=== PATIENT | male | born 2000 | race Caucasian/White ===

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

== ENCOUNTER 2019-10-29 15:45 | Emergency (ER) | payer MEDICAID ==
[2019-10-29 16:00] VITALS: BP 133/79
--- NOTE | 2019-10-29 16:35 | ER Document Report ---
ED GI/ - General Chief Complaint: Abdominal Pain Stated Complaint: FEVER/ABDOMINAL PAIN Time Seen by Provider: 10/29/19 16:20 Primary Care Provider: GOKUL MABRY MD [Primary Care Provider] - Follow up as needed Notes: CHIEF COMPLAINT: Fever and abdominal pain yesterday HPI: 19-year-old male patient states yesterday he had a slight tummy ache around the [facility] that lasted for a few hours then went away. States he had a fever of 100 yesterday. No vomiting or diarrhea denies nausea. States today presenting to the emergency department requesting a COVID test. He may have had a low-grade fever this morning but has absolutely no abdominal pain. Denies dysuria. Denies testicular pain. States his mother wanted to get him checked for COVID because he works at [employer] ROS: See HPI - all other systems were reviewed and are otherwise negative Constitutional: Subjective fever Eyes: no drainage, no blurred vision ENT: no runny nose, no sore throat Cardiovascular: no chest pain Resp: no SOB, no cough GI: no vomiting, no diarrhea, + abdominal pain : no dysuria Integumentary: no rash Allergy: no hives Musculoskeletal: no extremity pain or swelling Neurological: no numbness/tingling, no weakness MEDICATIONS: I agree with the patient medications as charted by the RN. ALLERGIES: I agree with the allergies as charted by the RN. PAST MEDICAL HISTORY/PAST SURGICAL HISTORY: Reviewed and agree as charted by RN. SOCIAL HISTORY: Reviewed and agree as charted by RN. FAMILY HISTORY: No significant familial comorbid conditions directly related to patient complaint EXAM: Reviewed vital signs as charted by RN. CONSTITUTIONAL: Alert and oriented and responds appropriately to questions. Well-appearing; well-nourished HEAD: Normocephalic; atraumatic EYES: PERRL; Conjunctivae clear, sclerae non-icteric ENT: normal nose; no rhinorrhea; moist mucous membranes; pharynx without lesions noted, no uvula edema or deviation, no tonsillar hypertrophy, phonation normal NECK: Supple without meningismus; non-tender; no cervical lymphadenopathy, no masses CARD: RRR; no murmurs, no clicks, no rubs, no gallops; symmetric distal pulses RESP: Normal chest excursion without splinting or tachypnea; breath sounds clear and equal bilaterally; no wheezes, no rhonchi, no rales, pulse oximetry 100% on room air not hypoxic ABD/GI: Normal bowel sounds; non-distended; soft, there is absolutely no abdominal pain on palpation of the abdomen specifically in the periumbilical and right lower quadrant region, no rebound, no guarding; no palpable organomegaly or masses. BACK: The back appears normal and is non-tender to palpation, there is no CVA tenderness EXT: Normal ROM in all joints; non-tender to palpation; no cyanosis, no effusions, no edema SKIN: Normal color for age and race; warm; dry; good turgor; no acute lesions noted NEURO: Moves all extremities equally; Motor and sensory function intact PSYCH: The patient's mood and manner are appropriate. Grooming and personal hygiene are appropriate. MDM: 19-year-old male who had a subjective fever yesterday and this morning with periumbilical abdominal pain yesterday who has absolutely no abdominal pain today and is requesting COVID testing. Patient has no right lower quadrant pain on exam suggesting appendicitis. I discussed this at length with the patient. I did offer evaluation which would include urine and lab work initially possibly imaging depending on results but he has no reproducible pain at this time that would suggest a surgical process no peritoneal signs. Patient elects to have the COVID test and will return for continued fevers or if the abdominal pain reoccurs TRAVEL OUTSIDE OF THE [place] IN LAST 30 DAYS: No - Related Data Allergies/Adverse Reactions: latex Allergy (Verified 10/29/19 16:15) red dye Allergy (Verified 10/29/19 16:15) Past Medical History - Social History Smoking Status: Never Smoker Frequency of alcohol use: None Drug Abuse: None Family History: Reviewed & Not Pertinent Patient has homicidal ideation: No Psychiatric Medical History: Reports: Hx Depression Physical Exam - Vital signs Vitals: Temp Pulse Resp BP Pulse Ox 99.0 F 101 H 20 133/79 H 99 10/29/19 15:59 10/29/19 15:59 10/29/19 15:59 10/29/19 15:59 10/29/19 15:59 Course - Vital Signs Vital signs: Temp Pulse Resp BP Pulse Ox 99.0 F 101 H 20 133/79 H 99 10/29/19 16:00 10/29/19 15:59 10/29/19 15:59 10/29/19 15:59 10/29/19 15:59 Discharge - Discharge Clinical Impression: Abdominal pain, periumbilical, Person under investigation for COVID-19 Condition: Stable Disposition: HOME, SELF-CARE Additional Instructions: You are considered a person under investigation for COVID-19 at this time, self quarantine at home until you have a negative test result which may take 2 to 5 days. You should hear from someone at the hospital about your results. You had no abdominal pain on your exam today in the emergency department but disease course changes over time and if you develop recurrent abdominal pain you should return to the emergency department for reevaluation as discussed Forms: Return to Work Referrals: GOKUL MABRY MD [Primary Care Provider] - Follow up as needed
== END 2019-10-29 17:00 | disposition home or self-care (01) ==
LOC: ER 15:45
DX: R10.33 Periumbilical pain (principal); R50.9 Fever, unspecified; Z20.828 Contact with and (suspected) exposure to other viral communicable diseases; Z91.040 Latex allergy status
CPT/HCPCS: 99282; 87635; C9803